=== PATIENT | male | born 1980 | race Caucasian/White ===

== ENCOUNTER 2021-05-05 15:02 | Emergency (ER) | payer SELFPAY ==
[~2021-05-05] VITALS: Ht 162.6 cm; Wt 71.7 kg
[2021-05-05 15:08] VITALS: BP 147/92
--- NOTE | 2021-05-05 15:15 | NUR ---
PATIENT AMBULATED TO PAIN BED 5
--- NOTE | 2021-05-05 15:18 | NUR ---
MIKHAIL ORDOÑEZ EVALUATING PATIENT AT BEDSIDE
[2021-05-05] MEDS ORDERED: ONDANSETRON 4 MG ODT PO ONE (15:20)
[2021-05-05] MEDS ORDERED: MORPHINE SULFATE 4 MG/ML SYR IM ONE (15:20)
--- NOTE | 2021-05-05 15:51 | NUR ---
41/M BIB SELF C/O OF LEFT ARM PAIN AFTER FALLING OFF THE 3RD STEP OF A LADDER X2HRS AGO. PATIENT STATED THAT HE HAS SHARP 8/10 ON LEFT ARM. PT DENIES N/V/D/C, SOB, CP AT THIS TIME. DENIES PMHX DENIES MEDS NKA
--- NOTE | 2021-05-05 15:55 | NUR ---
PATIENT TAKEN TO RADIOLOGY VIA W/C
--- NOTE | 2021-05-05 16:20 | NUR ---
RETURNED FROM RADIOLOGY VIA W/C
--- NOTE | 2021-05-05 17:04 | NUR ---
PATIENT STABLE IN BED, ALL NEEDS MET
[2021-05-05] MEDS ORDERED: LIDOCAINE MPF 1% 10 MG/ML VIAL INJ ONE ×3 (17:05→18:35)
[2021-05-05] MEDS ORDERED: IBUP-2213 PO (17:29)
[2021-05-05] MEDS ORDERED: ACET-8386 PO (17:29)
[2021-05-05] MEDS ORDERED: HYDROcodone/APAP 5/325 MG 1 TAB TAB PO ONE (17:50)
--- NOTE | 2021-05-05 18:17 | NUR ---
BROTH MIXER AT PT BEDSIDE.
--- NOTE | 2021-05-05 18:27 | NUR ---
PT WAS PLACED IN SUGARTONG SPLINT AND SLING ON LEFT ARM. ERPA NOTIFIED.
[2021-05-05] MEDS ORDERED: fentaNYL citrate 0.05 MG/ML VIAL IVP ONE (18:45)
--- NOTE | 2021-05-05 19:08 | NUR ---
PATIENT IN BED STABLE, WATER CUP GIVEN
--- NOTE | 2021-05-05 19:19 | NUR ---
Pt report given to [facility] AGU[facility]. Transfer of care at this time.
[2021-05-05 20:25] VITALS: BP 140/90
--- NOTE | 2021-05-05 20:25 | NUR ---
Patient discharged with v/s stable. Written and verbal after care instructions given and explained. Patient alert, oriented and verbalized understanding of instructions. Ambulatory with steady gait. All questions addressed prior to discharge. ID band removed. Patient advised to follow up with PMD. Rx of HYDROCODON/ ACETAMETAPHIN AND IBUPROFEN given. Opportunity to ask questions provided and answered.
== END 2021-05-05 20:25 | disposition home or self-care (01) ==
LOC: MED 15:02
DX: S52.532A Colles' fracture of left radius, initial encounter for closed fracture (principal); W11.XXXA Fall on and from ladder, initial encounter; Y93.89 Activity, other specified; Y92.89 Other specified places as the place of occurrence of the external cause; Y99.8 Other external cause status
CPT/HCPCS: 25605; 71101; 73090; 73100; 73110; 73130; 96372; 96374; 99284; J2001; J2270; J3010; Q0092; Q0162